=== PATIENT | male | born 1960 | race Caucasian/White ===

== ENCOUNTER → 2017-03-31 09:26 | Emergency (ER) | payer BC ==
[2017-03-31 09:37] VITALS: BP 138/107
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
== END ==
LOC: ED 09:26
DX: Z00.00 Encounter for general adult medical examination without abnormal findings (principal); R53.83 Other fatigue
CPT/HCPCS: 99282